=== PATIENT | female | born 1995 | race Caucasian/White ===

== ENCOUNTER 2018-02-11 17:32 | Emergency (ER) | payer BC, OTHER ==
[2018-02-11 17:57] VITALS: BP 151/85; PULSE 86; RESP 18; TEMP 98.9
[2018-02-11] MEDS ORDERED: LIDOCAINE 1% INJ 10MG/ML (20 ML MDV) SQ ONE (18:22)
[2018-02-11] MEDS ORDERED: DIPH,PERTUS(ACELL)TETVAC-LF 0.5 ML VIAL IM ONE (18:32)
--- NOTE | 2018-02-11 19:08 | ED ---
General Adult HPI - General Chief complaint: Extremity Injury, Lower Stated complaint: Ripped toe nail off Time Seen by Provider: 02/11/18 17:39 Source: patient, RN notes reviewed Mode of arrival: ambulatory Limitations: no limitations - History of Present Illness Initial comments: 22-year-old female presents to the emergency department for a chief complaint of nail avulsion one hour ago. Patient states she was walking barefoot and accidentally kicked a rock in her nail came off. Patient did not injure any other part of the toe. Patient denies pain in the toe besides the nail. Patient denies pain in the foot. Patient did not fall or hit her head. Patient 's tetanus is not up-to-date. Patient has no other complaints at this time including shortness of breath, chest pain, abdominal pain, nausea or vomiting, headache, or visual changes. - Related Data Allergies Allergy/AdvReac Type Severity Reaction Status Date / Time Penicillins Allergy Unknown Verified 02/11/18 17:57 Review of Systems ROS Statement: Those systems with pertinent positive or pertinent negative responses have been documented in the HPI. ROS Other: All systems not noted in ROS Statement are negative. Past Medical History Past Medical History: No Reported History History of Any Multi-Drug Resistant Organisms: None Reported Additional Past Surgical History / Comment(s): wisdom teeth Past Psychological History: No Psychological Hx Reported Smoking Status: Never smoker Past Alcohol Use History: None Reported Past Drug Use History: None Reported General Exam Limitations: no limitations General appearance: alert, in no apparent distress Head exam: Present: atraumatic, normocephalic, normal inspection Eye exam: Present: normal appearance ENT exam: Present: normal exam, mucous membranes moist Neck exam: Present: normal inspection, full ROM. Absent: tenderness, meningismus, lymphadenopathy Respiratory exam: Present: normal lung sounds bilaterally. Absent: respiratory distress, wheezes, rales, rhonchi, stridor Cardiovascular Exam: Present: regular rate, normal rhythm, normal heart sounds. Absent: systolic murmur, diastolic murmur, rubs, gallop, clicks Extremities exam: Present: full ROM (Full range of motion of all digits in the left foot including the fourth digit), tenderness (Tenderness over the nail bed of the fourth digit left foot. No tenderness over the rest of the fourth toe her left foot), normal capillary refill (Refill less than 2 seconds and pedal pulse 2+), other (Nail of fourth toe is almost completely removed from nail bed. Distal aspect is still slightly connected. No lacerations under the nail bed.). Absent: joint swelling Course Vital Signs 02/11/18 17:50 Temperature 98.9 F Pulse Rate 86 Respiratory 18 Rate Blood Pressure 151/85 O2 Sat by Pulse 100 Oximetry Medical Decision Making - Medical Decision Making 22-year-old female presents to the emergency determine for a chief complaint of avulsion of the nail of the fourth digit left toe. Patient accidentally kicked it against a rock in the nail popped off. No other pain in the toe. Patient does not want an x-ray at this time. On exam proximal aspect of nail is completely a fold. Dysplastic is still slightly connected. No lacerations under the nail bed. Nail was removed with sterile technique and it was irrigated thoroughly with saline and cleaned with iodine. It was then reinserted into the nail fold using sterile technique. It was sutured with 2 5- 0 simple interrupted sutures. Patient will return in 7-10 days to have the sutures removed. She was educated on signs of infection and to return if these or any other worsening symptoms occur. She is aware of that ultimately the nail will fall off but this allows for a new nail to form. She will take Motrin and Tylenol for pain. She will follow up with primary care in 1-2 days. Disposition Clinical Impression: Nail avulsion, toe Disposition: HOME SELF-CARE Condition: Good Instructions: Nail Avulsion (ED) Additional Instructions: Please take Motrin and Tylenol for pain. Please monitor for any signs of infection such as spreading redness, streaking redness, drainage, or fever. Return to the emergency department in 7-10 days to have sutures removed. Is patient prescribed a controlled substance at d/c from ED?: No Referrals: Sri Collier MD [Primary Care Provider] - 1-2 days Time of Disposition: 19:05
== END 2018-02-11 19:17 | disposition home or self-care (01) ==
LOC: EC 17:32
DX: S91.205A Unspecified open wound of left lesser toe(s) with damage to nail, initial encounter (principal); Z23 Encounter for immunization; W22.8XXA Striking against or struck by other objects, initial encounter; Y93.01 Activity, walking, marching and hiking; Y92.89 Other specified places as the place of occurrence of the external cause; Z88.0 Allergy status to penicillin
CPT/HCPCS: 90715; 99283; 11730; 90471; J2001

== ENCOUNTER 2019-04-21 07:20 | Emergency (ER) | payer BC ==
[2019-04-21] MEDS ORDERED: cefTRIAXone IN SWFI 1,000 MG/10 ML SYRINGE IVP STA (07:41)
[2019-04-21] MEDS ORDERED: LIDOCAINE 1% INJ 10MG/ML (20 ML MDV) SQ ONE (07:43)
--- NOTE | 2019-04-21 07:46 | ED ---
General Adult HPI - General Chief complaint: Skin/Abscess/Foreign Body Stated complaint: Cellulitis Time Seen by Provider: 04/21/19 07:29 Source: patient, RN notes reviewed, old records reviewed Mode of arrival: ambulatory Limitations: no limitations - History of Present Illness Initial comments: Patient is a 23-year-old female presents emergency department today for evaluation for an abscess over her left thigh. Patient reports that approximately one week ago she had a small pimple-like area that she scratched but no weight head was removed at that time. Patient reports that she started having increased redness and swelling. Last Thursday she went to her PCP and was started on Bactrim and clindamycin ointment over the area. Patient reports that the area of redness and swelling is becoming worse. Patient states that she has had the antibiotics for approximately a week and she has shows worsening signs. Patient states that she's had some chills and fever. She denies history of MRSA. 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 - Related Data Home Medications Medication Instructions Recorded Confirmed Biotin 5 mg PO DAILY 04/21/19 04/21/19 Cetirizine HCl [Zyrtec] 10 mg PO DAILY 04/21/19 04/21/19 Multivitamins, Thera [Multivitamin 1 tab PO DAILY 04/21/19 04/21/19 (formulary)] Ranitidine HCl [Zantac] 150 mg PO BID PRN 04/21/19 04/21/19 Previous Rx's Medication Instructions Recorded Cephalexin [Keflex] 500 mg PO Q6HR #28 cap 04/21/19 Cephalexin [Keflex] 500 mg PO Q6HR 3 Days #12 cap 04/21/19 Sulfamethox-Tmp 800-160Mg [Bactrim 2 tab PO Q12HR #28 tab 04/21/19 DS 800-160 mg] Allergies Allergy/AdvReac Type Severity Reaction Status Date / Time Penicillins Allergy Unknown Verified 04/21/19 07:54 Review of Systems ROS Statement: Those systems with pertinent positive or pertinent negative responses have been documented in the HPI. ROS Other: All systems not noted in ROS Statement are negative. Past Medical History Past Medical History: No Reported History History of Any Multi-Drug Resistant Organisms: None Reported Additional Past Surgical History / Comment(s): wisdom teeth Past Psychological History: No Psychological Hx Reported Smoking Status: Never smoker Past Alcohol Use History: None Reported Past Drug Use History: None Reported General Exam - General Exam Comments Initial Comments: This patient's a 23-year-old female. Alert and oriented 3. Patient appears in no significant distress. Limitations: no limitations General appearance: alert, in no apparent distress Head exam: Present: atraumatic, normocephalic, normal inspection Eye exam: Present: normal appearance, PERRL, EOMI. Absent: scleral icterus, conjunctival injection, periorbital swelling ENT exam: Present: normal exam, mucous membranes moist Neck exam: Present: normal inspection. Absent: tenderness, meningismus, lymphadenopathy Respiratory exam: Present: normal lung sounds bilaterally. Absent: respiratory distress, wheezes, rales, rhonchi, stridor Cardiovascular Exam: Present: regular rate, normal rhythm, normal heart sounds. Absent: systolic murmur, diastolic murmur, rubs, gallop, clicks GI/Abdominal exam: Present: soft, normal bowel sounds. Absent: distended, tenderness, guarding, rebound, rigid Extremities exam: Present: normal inspection, full ROM, normal capillary refill, other ( And is erythema and induration over the left lateral thigh measuring 14cm by 10cm. Central abscess with purulent and black fluid removed. ). Absent: tenderness, pedal edema, joint swelling, calf tenderness Back exam: Present: normal inspection Neurological exam: Present: alert, oriented X3, CN II-XII intact Psychiatric exam: Present: normal affect, normal mood Skin exam: Present: warm, dry, intact, normal color. Absent: rash Course Vital Signs 04/21/19 07:29 Temperature 98.6 F Pulse Rate 108 H Respiratory 18 Rate Blood Pressure 151/94 O2 Sat by Pulse 99 Oximetry Procedures - Incision & Drainage Indication: abscess Site: lower extremity (left thigh) Size (cm): 5 Anesthetic Used: lidocaine 1% Amount (mLs): 10 I&D Cleaning Method: Chloroprep Sterile Field Used?: Yes Scalpel Used: #11 Needle Aspiration Performed?: Yes Irrigation Performed?: Yes I&D Drainage Obtained: Pus, Blood Packing: Iodoform Culture Obtained?: Yes Patient Tolerated Procedure: well Medical Decision Making - Medical Decision Making 23-year-old female presented with a abscess over her left lateral thigh. Patient has had symptoms for past week. She is on 1 Bactrim DS pill twice a day. At this time I discussed increasing the Bactrim to 2 pills twice a day and adding Keflex. I discussed warm compresses over the area. Patient had the area incised and drained and approximately 4-5 mL of Purulent fluid was removed. Patient had packing. Discussed Patient is follow-up with the wound care clinic. Discussed that she can return if there is any worsening signs or symptoms or fever. All questions answered return parameters were discussed. - Lab Data Result diagrams: 04/21/19 08:00 04/21/19 08:00 Lab Results 04/21/19 04/21/19 04/21/19 Range/Units 08:00 08:00 08:00 WBC 9.6 (3.8-10.6) k/uL RBC 4.28 (3.80-5.40) m/uL Hgb 13.3 (11.4-16.0) gm/dL Hct 38.8 (34.0-46.0) % MCV 90.7 (80.0-100.0) fL MCH 31.0 (25.0-35.0) pg MCHC 34.2 (31.0-37.0) g/dL RDW 11.5 (11.5-15.5) % Plt Count 267 (150-450) k/uL Neutrophils % 77 % Lymphocytes % 12 % Monocytes % 8 % Eosinophils % 1 % Basophils % 0 % Neutrophils # 7.4 (1.3-7.7) k/uL Lymphocytes # 1.2 (1.0-4.8) k/uL Monocytes # 0.8 (0-1.0) k/uL Eosinophils # 0.1 (0-0.7) k/uL Basophils # 0.0 (0-0.2) k/uL Sodium 139 (137-145) mmol/L Potassium 3.7 (3.5-5.1) mmol/L Chloride 102 (98-107) mmol/L Carbon Dioxide 25 (22-30) mmol/L Anion Gap 12 mmol/L BUN 13 (7-17) mg/dL Creatinine 0.73 (0.52-1.04) mg/dL Est GFR (CKD-EPI)AfAm >90 (>60 ml/min/1.73 sqM) Est GFR (CKD-EPI)NonAf >90 (>60 ml/min/1.73 sqM) Glucose 111 H (74-99) mg/dL Plasma Lactic Acid Ramesh 1.6 (0.7-2.0) mmol/L Calcium 9.6 (8.4-10.2) mg/dL Disposition Clinical Impression: Abscess of left thigh Disposition: HOME SELF-CARE Condition: Good Instructions (If sedation given, give patient instructions): Abscess Incision and Drainage (ED) Additional Instructions: Patient was taking the meds as prescribed. Return to the emergency department if any alarming signs or symptoms occur. Patient should do warm compresses over the area. Patient has a follow-up wound care clinic or chart surgeon for wound recheck in the 1-2 days. Prescriptions: Sulfamethox-Tmp 800-160Mg [Bactrim DS 800-160 mg] 2 tab PO Q12HR #28 tab Cephalexin [Keflex] 500 mg PO Q6HR 3 Days #12 cap Cephalexin [Keflex] 500 mg PO Q6HR #28 cap Is patient prescribed a controlled substance at d/c from ED?: No Referrals: Sri Collier MD [Primary Care Provider] - 1-2 days Raymon Suarez MD [STAFF PHYSICIAN] - 1-2 days Erik Bello MD [Medical Doctor] - 1-2 days Time of Disposition: 08:37
[2019-04-21] MEDS ORDERED: KETOROLAC 30 MG/ML 1 ML VIAL IVP STA (08:15)
[2019-04-21 08:21] LABS: Basophils % (A) 0 %; Eosinophils # (A) 0.1 k/uL (0-0.7); Eosinophils % (A) 1 %; HCT 38.8 % (34.0-46.0); HGB 13.3 gm/dL (11.4-16.0); Lymphocytes # (A) 1.2 k/uL (1.0-4.8); Lymphocytes % (A) 12 %; MCHC 34.2 g/dL (31.0-37.0); MCV 90.7 fL (80.0-100.0); Mean Platelet Volume 6.7; Monocytes # (A) 0.8 k/uL (0-1.0); Monocytes % (A) 8 %; Neutrophils # (A) 7.4 k/uL (1.3-7.7); Neutrophils % (A) 77 %; Platelet Count 267 k/uL (150-450); RBC 4.28 m/uL (3.80-5.40); RDW 11.5 % (11.5-15.5); WBC 9.6 k/uL (3.8-10.6)
[2019-04-21 08:33] LABS: African American GFR (CKD) >90 (>60 ml/min/1.73 sqM); Anion Gap 12 mmol/L; Blood Urea Nitrogen 13 mg/dL (7-17); Calcium 9.6 mg/dL (8.4-10.2); Carbon Dioxide 25 mmol/L (22-30); Chloride 102 mmol/L (98-107); Glucose 111 mg/dL (74-99); Potassium 3.7 mmol/L (3.5-5.1); Sodium 139 mmol/L (137-145)
[2019-04-21] MEDS ORDERED: ACET/COD 300 MG/30 MG STARTER PACK 6 TAB BTL PO STA (08:37)
[2019-04-21 08:55] VITALS: BP 132/92; PULSE 85; RESP 16; TEMP 98
== END 2019-04-21 08:50 | disposition home or self-care (01) ==
LOC: EC 07:20
DX: L02.416 Cutaneous abscess of left lower limb (principal); Z88.0 Allergy status to penicillin
CPT/HCPCS: 36415; 80048; 83605; 85025; 87040; 87070; 87205; 87077; 87186; 99284; 10060; 96374; 96375; J2001; J0696; J1885

== ENCOUNTER 2019-05-20 19:51 | Emergency (ER) | payer BC ==
[2019-05-20 20:19] VITALS: BP 129/88; PULSE 114; RESP 16; TEMP 99.1
--- NOTE | 2019-05-20 22:42 | ED ---
Skin/Abscess/FB HPI - General Chief complaint: Skin/Abscess/Foreign Body Stated complaint: ear pain/discharge Time Seen by Provider: 05/20/19 21:44 Source: patient Mode of arrival: ambulatory Limitations: no limitations - History of Present Illness Initial comments: Patient is a 24-year-old female presenting to the emergency Department with complaints of drainage and pain of the left ear 3 days. Patient states she was recently ER for an abscess on her left thigh which did test positive for MRSA. Patient completed a course of antibiotics for the abscess and that has since healed. Patient states partially 3 days ago she noticed a small pimple in the inside of her left ear and has since progressed last 2 days to increase in swelling, active drainage, an increase in pain. Patient denies any fever, chills, nausea, vomiting. Patient states she's never had anything like this before. Patient is currently finishing a course of clindamycin secondary to MRSA infection. Patient denies any other complaints at this time. Upon arrival to ER, vital signs are stable. - Related Data Home Medications Medication Instructions Recorded Confirmed Biotin 5 mg PO DAILY 04/21/19 04/21/19 Cetirizine HCl [Zyrtec] 10 mg PO DAILY 04/21/19 04/21/19 Multivitamins, Thera [Multivitamin 1 tab PO DAILY 04/21/19 04/21/19 (formulary)] Ranitidine HCl [Zantac] 150 mg PO BID PRN 04/21/19 04/21/19 Previous Rx's Medication Instructions Recorded Cephalexin [Keflex] 500 mg PO Q6HR #28 cap 04/21/19 Cephalexin [Keflex] 500 mg PO Q6HR 3 Days #12 cap 04/21/19 Sulfamethox-Tmp 800-160Mg [Bactrim 2 tab PO Q12HR #28 tab 04/21/19 DS 800-160 mg] Dotijmmh-Bsofinyqe-Sl Otic 4 drops LEFT EAR QID 10 Days #1 05/20/19 [Cortisporin Otic Soln] bottle Allergies Allergy/AdvReac Type Severity Reaction Status Date / Time Penicillins Allergy Unknown Verified 04/21/19 07:54 sulfamethoxazole Allergy Rash/Hives Verified 05/20/19 20:17 [From Bactrim] trimethoprim [From Bactrim] Allergy Rash/Hives Verified 05/20/19 20:17 Review of Systems ROS Statement: Those systems with pertinent positive or pertinent negative responses have been documented in the HPI. ROS Other: All systems not noted in ROS Statement are negative. Past Medical History Past Medical History: No Reported History History of Any Multi-Drug Resistant Organisms: MRSA Date of last positivie culture/infection: 04/21/19 MDRO Source:: MRSA THIGH Additional Past Surgical History / Comment(s): wisdom teeth Past Psychological History: No Psychological Hx Reported Smoking Status: Never smoker Past Alcohol Use History: None Reported Past Drug Use History: None Reported General Exam - General Exam Comments Initial Comments: GENERAL: Well-appearing, well-nourished and in no acute distress. HEAD: Atraumatic, normocephalic. EYES: Pupils equal round and reactive to light, extraocular movements intact, sclera anicteric, conjunctiva are normal. ENT: Right EAC has mild irritation, right TM is normal. Left EAC is completely blocked with active red/yellow drainage and edema, left TM is not visible. Pain with left ear motion. Nares patent, oropharynx clear without exudates. Moist mucous membranes. NECK: Normal range of motion, supple without lymphadenopathy or JVD. LUNGS: Breath sounds clear to auscultation bilaterally and equal. No wheezes rales or rhonchi. HEART: Regular rate and rhythm without murmurs, rubs or gallops. ABDOMEN: Soft, nontender, normoactive bowel sounds. No guarding, no rebound. No masses appreciated. : Deferred EXTREMITIES: Normal range of motion, no pitting or edema. No clubbing or cyanosis. NEUROLOGICAL: Cranial nerves II through XII grossly intact. Normal speech, normal gait. PSYCH: Normal mood, normal affect. SKIN: Warm, Dry, normal turgor, no rashes or lesions noted. Limitations: no limitations Course Vital Signs 05/20/19 20:14 Temperature 99.1 F Pulse Rate 114 H Respiratory 16 Rate Blood Pressure 129/88 O2 Sat by Pulse 98 Oximetry Medical Decision Making - Medical Decision Making Patient is a 24-year-old female presenting with left ear pain and drainage 3 days. Patient is currently on clindamycin for a positive MRSA infection of the left leg that is healed. Patient denies any fever, chills, nausea, vomiting. On exam patient has active drainage from the left EAC that is red and yellow in color. Left EAC is blocked with drainage and edema. Left TM is not visible. Rest of exam is within normal limits. Patient will be started on antibiotic eardrops and will continue with oral clindamycin. Patient will be given referral for ENT for further follow-up. Culture of the ear drainage was obtained and is pending at this time. Patient is stable for discharge at this time. Return parameters were discussed with the patient and she verbalized understanding. Case discussed with Dr. Vo. Disposition Clinical Impression: External otitis of left ear, Left ear pain Disposition: HOME SELF-CARE Condition: Stable Instructions (If sedation given, give patient instructions): Otitis Externa (ED) Additional Instructions: Please return to the Emergency Department if symptoms worsen or any other concerns. Follow-up with ENT if symptoms progress. Prescriptions: Gerrvynh-Oofkhinnr-Rq Otic [Cortisporin Otic Soln] 4 drops LEFT EAR QID 10 Days #1 bottle Is patient prescribed a controlled substance at d/c from ED?: No Referrals: Sri Collier MD [Primary Care Provider] - 1-2 days Cody Gregg DO [Doctor of Osteopathic Medicine] - 1-2 days Raymon Suarze MD [STAFF PHYSICIAN] - 1-2 days
== END 2019-05-20 23:07 | disposition home or self-care (01) ==
LOC: EC 19:51
DX: H60.92 Unspecified otitis externa, left ear (principal); Z86.14 Personal history of Methicillin resistant Staphylococcus aureus infection; Z79.899 Other long term (current) drug therapy; Z88.0 Allergy status to penicillin; Z88.2 Allergy status to sulfonamides
CPT/HCPCS: 87070; 87077; 87186; 87205; 99283